=== PATIENT | male | born 1985 | race Two or more races ===

== ENCOUNTER → 2016-06-13 | Outpatient (REF) | payer BC, OTHER ==
[2016-06-13 13:33] LABS: ALBUMIN/GLOBULIN RATIO 1.11 (1.00-1.93); ALKALINE PHOSPHATASE 70 U/L (45-117); ALT/SGPT 45 U/L (12-78); ANION GAP 5 MEQ/L (8-16); AST/SGOT 51 U/L (15-37); BILIRUBIN,TOTAL 0.2 MG/DL (0.2-1.0); BLOOD UREA NITROGEN 9 MG/DL (7-18); CALCIUM LEVEL 8.8 MG/DL (8.5-10.1); CARBON DIOXIDE LEVEL 30 MEQ/L (21-32); CHLORIDE LEVEL 105 MEQ/L (98-107); CREATININE FOR GFR 0.71 MG/DL (0.70-1.30); GLOMERULAR FILTRATION RATE > 60.0 (>60); GLUCOSE, FASTING 83 MG/DL (70-105); POTASSIUM SERUM 4.5 MEQ/L (3.5-5.1); SODIUM LEVEL 140 MEQ/L (136-145); TOTAL PROTEIN 7.6 GM/DL (6.4-8.2)
[2016-06-18 10:09] LABS: %CD3+CD4+CD8+ 1.4 % (Not Estab.); %CD3+CD4+CD8- 25.1 % (Not Estab.); %CD3+CD4-CD8+ 50.8 % (Not Estab.); %CD3+CD4-CD8- 3.1 % (Not Estab.); ABS CD3+CD4+CD8+ 31 /uL (Not Estab.); ABS CD3+CD4+CD8- 552 /uL (Not Estab.); ABS CD3+CD4-CD8+ 1118 /uL (Not Estab.); ABS CD3+CD4-CD8- 68 /uL (Not Estab.); CD4/CD8 NYSDOH RATIO 0.49 (Not Estab.); Eosinophils 2 % (.); HCT 43.6 % (37.5-51.0); HGB 14.9 g/dL (12.6-17.7); Monocytes 11 % (.); Neutrophils 48 % (.); WBC 5.6 x10E3/uL (3.4-10.8)
== END ==
LOC: M SFHCPLAZ 10:25
PROVIDERS: ATTEND Internal Medicine Infectious Disease
DX: B20 Human immunodeficiency virus [HIV] disease (principal)